=== PATIENT | male | born 1950 | race Caucasian/White ===

== ENCOUNTER 2022-09-06 13:32 | Inpatient (IN) ==
[2022-09-06 15:44] VITALS: BMI 28.3
[2022-09-06] MEDS ORDERED: D5 1/2 NS 1,000 ML 1,000 ML IV ONE (17:24)
[2022-09-06] MEDS ORDERED: ZOSYN VIAL 3.375 GRAMS IV ONE (17:25)
[2022-09-06] MEDS ORDERED: PROTONIX INJ 40 MG VIAL ONE (17:25)
--- NOTE | 2022-09-06 17:25 | EKG ---
Test Reason : surgical clearance Blood Pressure : */* mmHG Vent. Rate : 103 BPM Atrial Rate : 103 BPM P-R Int : 184 ms QRS Dur : 82 ms QT Int : 326 ms P-R-T Axes : 57 -8 83 degrees QTc Int : 427 ms Normal sinus rhythm with premature atrial complexes in a pattern of bigeminy Low voltage QRS Nonspecific ST and T wave abnormality Abnormal ECG No previous ECGs available Confirmed by Dimitry Rosales ([id number]) on 09/06/2022 5:42:47 PM Referred By: Confirmed By: Dimitry Rosales
[2022-09-06] MEDS ORDERED: NS 100 ML IV 100 ML ONE (17:28)
[2022-09-06] MEDS: D5 1/2 NS 1,000 ML 1,000 ML IV SCH ×2 (17:31→21:40)
[2022-09-06] MEDS: MORPHINE SULFATE INJ 4 MG IVP PRN (17:44)
[2022-09-06] MEDS ORDERED: ZOSYN VIAL 3.375 GRAMS 3.375 G in NS 100 ML IV 100 ML IV SCH ×2 (18:00→21:00)
[2022-09-06] MEDS ORDERED: PROTONIX INJ 40 MG VIAL IVP SCH (18:00)
--- NOTE | 2022-09-06 18:01 | RAD ---
EXAM: CHEST X-RAYHISTORY: Abdominal surgical clearance.TECHNIQUE: AP CXR dated September 06, 2022 at 5:26 PM.COMPARISON: None.FINDINGS:The patient is status post sternotomy, presumably for CABG.There is evidence for a shallow inspiratory effort with mild prominence of the bronchopulmonary markings and widening of the cardiac silhouette. Note that mild CHF or volume overload cannot be excluded in this radiographic setting. Clinical correlation is advised.There is no gross focal lung consolidation, pleural effusion, or pneumothorax. The visualized bony structures are within normal limits.IMPRESSION:1. Shallow inspiratory effort with mild prominence of the bronchopulmonary markings and widening of the cardiac silhouette; DDX includes mild CHF or volume overload in the appropriate clinical setting; consider mild bronchitis and interstitial pneumonia in the appropriate clinical setting.2. Recommend clinical correlation and appropriate follow-up x-ray evaluation to ensure complete clearance as clinically warranted.3. Consider follow evaluation with noncontrast chest CT for further characterization as clinically warranted.Electronically signed by: Bryant Loya (September 06, 2022 17:59:54)
[2022-09-06] MEDS ORDERED: NS 1,000 ML IV 1,000 ML ONE (18:24)
[2022-09-06] MEDS ORDERED: POLYMYXIN B SULFATE ONE (18:24)
[2022-09-06] MEDS ORDERED: BARHEMSYS INJ IVP PRN (18:33)
[2022-09-06] MEDS ORDERED: DILAUDID INJ IVP PRN (18:33)
[2022-09-06] MEDS ORDERED: ZOFRAN INJ 4 MG VIAL IVP PRN ×2 (18:33→20:55)
[2022-09-06] MEDS ORDERED: BENADRYL INJ 50 MG VIAL IVP PRN (18:33)
[2022-09-06] MEDS ORDERED: REGLAN INJ 10 MG VIAL IVP PRN (18:33)
[2022-09-06] MEDS ORDERED: NovoLIN R (or HumuLIN R) ONE ×2 (18:40→19:27)
[2022-09-06] MEDS ORDERED: SUPRANE ONE (18:46)
[2022-09-06] MEDS ORDERED: KETAMINE HCL ONE (18:46)
[2022-09-06] MEDS ORDERED: NEO-SYNEPHRINE INJ ONE (18:50)
[2022-09-06] MEDS ORDERED: ZEMURON 100 MG VIAL ONE (18:50)
[2022-09-06] MEDS ORDERED: DIPRIVAN VIAL 0 ML ONE (18:50)
[2022-09-06] MEDS ORDERED: FENTANYL VIAL INJ 250 mcg ONE (18:50)
[2022-09-06] MEDS ORDERED: VERSED ONE (18:55)
[2022-09-06] MEDS ORDERED: BYFAVO INJ IVP ONE (18:57)
[2022-09-06] MEDS ORDERED: OFIRMEV IV 1000 MG VIAL 1,000 MG/100 ML VIAL IV ONE (19:02)
[2022-09-06] MEDS ORDERED: K-RIDER 10 MEQ/NS 100 ML 20 MEQ/200 ML BAG IV ONE (19:31)
[2022-09-06] MEDS ORDERED: BRIDION ONE (20:02)
[2022-09-06] MEDS: PROTONIX INJ 40 MG VIAL IVP SCH (21:50)
[2022-09-06] MEDS: NovoLIN R (or HumuLIN R) SUBCUT PRN (22:23)
[2022-09-07] MEDS: ZOSYN VIAL 3.375 GRAMS 3.375 G in NS 100 ML IV 100 ML IV SCH ×4 (00:26→21:31)
[2022-09-07] MEDS: NovoLIN R (or HumuLIN R) SUBCUT PRN ×5 (00:45→20:29)
[2022-09-07] MEDS: D5 1/2 NS 1,000 ML 1,000 ML IV SCH ×6 (01:05→20:27)
[2022-09-07] MEDS ORDERED: LANTUS SC ONE (01:58)
[2022-09-07] MEDS: LANTUS SC SCH ×2 (02:00→20:28)
[2022-09-07 06:17] LABS: BASOPHILS % (AUTO) 0 % (0.2-1.0); EOSINOPHILS # (AUTO) 0.1 x10^3/uL (0.0-0.2); EOSINOPHILS % (AUTO) 0.6 % (0.9-2.9); HEMOGLOBIN 11.5 g/dL (13.5-18.0); LYMPHOCYTES # (AUTO) 0.5 X10^3/uL (1.3-2.9); LYMPHOCYTES % (AUTO) 2.4 % (21.0-51.0); MEAN CORPUSCULAR HEMOGLOBIN 30.5 pg (27.0-34.0); MEAN CORPUSCULAR HGB CONC 33.8 g/dL (33.0-35.0); MEAN CORPUSCULAR VOLUME 90.1 fL (80.0-100.0); MEAN PLATELET VOLUME 8.2 fL (7.4-11.0); MONOCYTES # (AUTO) 0.9 x10^3/uL (0.3-0.8); MONOCYTES % (AUTO) 4.1 % (0.0-13.0); NEUTROPHILS # (AUTO) 20.9 x10^3/uL (2.2-4.8); NEUTROPHILS % (AUTO) 92.9 % (42.0-75.0); PLATELET COUNT 298 X10^3/uL (150.0-450.0); RED BLOOD COUNT 3.78 X10^6/uL (4.7-6.0); RED CELL DISTRIBUTION WIDTH 13.6 % (11.6-16.5); WHITE BLOOD COUNT 22.4 X10^3/uL (3.6-10.0)
[2022-09-07 06:19] LABS: CALCIUM 8.1 mg/dL (8.5-10.1); CARBON DIOXIDE 24.3 mmol/L (21-32); COR CA(FOR HYPOALB) 8.9 mg/dL (8.5-10.1); CREATININE 1.67 mg/dL (0.70-1.30); POTASSIUM 4.5 mmol/L (3.5-5.1); TOTAL PROTEIN 6.2 g/dL (6.4-8.2)
[2022-09-07 06:47] LABS: BAND NEUTROPHILS % 5 % (0-10); PLATELET MORPHOLOGY COMMENT NORMAL (NORMAL)
--- NOTE | 2022-09-07 07:45 | DR.PROGNOT ---
HOSPITAL PROGRESS NOTE Progress Note for Day of: Progress Note Date: 09/07/22 Chief Complaint Chief Complaint: s/p repair of incarcerated LT inguinal hernia . RT rib Fxs with small effusion . recent diverticulitis . feeling better today . BS 255, BUN 33 , Creat 1.6.. WBC 22.4 tem 99.2 Past Medical Family Social History Allergies: Allergies No Known Allergies Allergy (Verified 09/06/22 17:30) Vital Signs Vital Signs: Temperature 99.2 F Pulse Rate [Left Radial] 92 Pulse Rate 80 Respiratory Rate 14 Blood Pressure [Left Arm] 124/61 Blood Pressure 90/50 O2 Sat by Pulse Oximetry 93 Physical Exam Mood Description: Calm Speech Pattern: Clear and Appropriate Laboratory and Diagnostics Result Diagrams: 09/07/22 04:45 09/07/22 04:45 Labs: Laboratory WBC 22.4 X10^3/uL (3.6-10.0) H 09/07/22 04:45 RBC 3.78 X10^6/uL (4.7-6.0) L 09/07/22 04:45 Hgb 11.5 g/dL (13.5-18.0) L 09/07/22 04:45 Hct 34.0 % (42.0-54.0) L 09/07/22 04:45 MCV 90.1 fL (80.0-100.0) 09/07/22 04:45 MCH 30.5 pg (27.0-34.0) 09/07/22 04:45 MCHC 33.8 g/dL (33.0-35.0) 09/07/22 04:45 RDW 13.6 % (11.6-16.5) 09/07/22 04:45 Plt Count 298 X10^3/uL (150.0-450.0) 09/07/22 04:45 Plt Count Comment Adequate (ADEQUATE) 09/07/22 04:45 MPV 8.2 fL (7.4-11.0) 09/07/22 04:45 Neut % (Auto) 92.9 % (42.0-75.0) H 09/07/22 04:45 Lymph % (Auto) 2.4 % (21.0-51.0) L 09/07/22 04:45 [place] % (Auto) 4.1 % (0.0-13.0) 09/07/22 04:45 Eos % (Auto) 0.6 % (0.9-2.9) L 09/07/22 04:45 Baso % (Auto) 0 % (0.2-1.0) L 09/07/22 04:45 Neut # (Auto) 20.9 x10^3/uL (2.2-4.8) H 09/07/22 04:45 Lymph # (Auto) 0.5 X10^3/uL (1.3-2.9) L 09/07/22 04:45 [place] # (Auto) 0.9 x10^3/uL (0.3-0.8) H 09/07/22 04:45 Eos # (Auto) 0.1 x10^3/uL (0.0-0.2) 09/07/22 04:45 Baso # (Auto) 0.0 X10^3/uL (0.0-0.1) 09/07/22 04:45 Absolute Nucleated RBC 0.0 /100WBC 09/07/22 04:45 Total Counted 100 09/07/22 04:45 Neutrophils % (Manual) 82 % (39-76) H 09/07/22 04:45 Band Neutrophils % 5 % (0-10) 09/07/22 04:45 Lymphocytes % (Manual) 6 % (13-43) L 09/07/22 04:45 Monocytes % (Manual) 7 % (4-9) 09/07/22 04:45 Plt Morphology Comment Normal (NORMAL) 09/07/22 04:45 RBC Morphology Normal (NORMAL) 09/07/22 04:45 Sodium 136 mmol/L (136-145) 09/07/22 04:45 Corrected Sodium 141 mmol/L (136-145) 09/07/22 04:45 Potassium 4.5 mmol/L (3.5-5.1) 09/07/22 04:45 Chloride 103 mmol/L (98-107) 09/07/22 04:45 Carbon Dioxide 24.3 mmol/L (21-32) 09/07/22 04:45 BUN 33 mg/dL (7-18) H 09/07/22 04:45 Creatinine 1.67 mg/dL (0.70-1.30) H 09/07/22 04:45 Est GFR (MDRD) Af Amer 52 (>60) L 09/07/22 04:45 Est GFR (MDRD) Non-Af 43 (>60) L 09/07/22 04:45 Glucose 305 mg/dL (65-99) H 09/07/22 04:45 POC Glucose (mg/dL) 259 mg/dL (65-99) H 09/07/22 05:18 Calcium 8.1 mg/dL (8.5-10.1) L 09/07/22 04:45 Corrected Calcium 8.9 mg/dL (8.5-10.1) 09/07/22 04:45 Total Bilirubin 0.70 mg/dL (0.2-1.0) 09/07/22 04:45 AST 82 Units/L (15-37) H 09/07/22 04:45 ALT 33 Units/L (12-78) 09/07/22 04:45 Alkaline Phosphatase 73 Units/L (46-116) 09/07/22 04:45 Total Protein 6.2 g/dL (6.4-8.2) L 09/07/22 04:45 Albumin 3.0 g/dL (3.4-5.0) L 09/07/22 04:45 Globulin 3.2 g/dL (2.5-4.5) 09/07/22 04:45 Albumin/Globulin Ratio 0.9 Ratio (1.1-2.1) L 09/07/22 04:45 Assessment and Plan 1: incarcerated Lt inguinal hernia with the colon inside . s/p surgery . same PO care , OOB , Full liquid diet . 2: dehydration . on IVF. 3: DM . same medical management . same IV ABT , DVT prophylaxis , incentive spirometer .
[2022-09-07] MEDS: PROTONIX INJ 40 MG VIAL IVP SCH ×2 (09:58→20:34)
[2022-09-07] MEDS: LOVENOX INJ 40 MG SYR SC SCH (09:58)
[2022-09-07] MEDS: ZESTRIL TAB 5 MG PO SCH (09:58)
[2022-09-07] MEDS: MORPHINE SULFATE INJ 4 MG IVP PRN ×2 (11:08→18:53)
--- NOTE | 2022-09-07 14:56 | DR.CONSULT ---
CONSULT Consultation for Day of: Date: 09/07/22 Chief Complaint Chief Complaint: Medical management chronic medical problems Allergies Allergies Allergy/AdvReac Type Severity Reaction Status Date / Time No Known Allergies Allergy Verified 09/06/22 17:30 History of Present Illness History of Present Illness: This is a pleasant 72-year-old white male who came in late yesterday afternoon from [place], [place] for an incarcerated left inguinal hernia. Our general surgeon, Dr. Coreas was consulted and he took him to the OR and repair the incarcerated hernia. I was called approximately 1:45 in the morning as his blood sugar had gone up to greater than 300. I started him back on his Lantus 60 units at at bedtime and when I saw him this morning he reported that he was feeling much better. I do see that he is got an elevated white blood cell count is having some fever still. He is currently receiving IV Zosyn. I see he is also receiving D5 half-normal saline. He does report that he still have some abdominal pain but it is much improved since the operation. He does report that his bowels are moving this morning however it it is diarrhea at this time. He is taking some clear fluids and tolerating that okay now. Past Medical History Past Medical History: Diabetes and Hypertension Past Surgical History Surgical History: Tonsillectomy Family History Family Medical History: Diabetes Mellitus and [place] Social History Does patient currently use any type of tobacco product: No Have you used tobacco products in the last 12 months: No Type of Tobacco Use: None Does any household member use tobacco: No Alcohol Use: None Drug Use: None Medications Home Medications: No Known Allergies Allergy (Verified 09/06/22 17:30) CONTINUE taking the following medications atorvastatin 40 mg tablet 40 mg PO QPM cholesterol 09/07/22 [History] clopidogrel 75 mg tablet 75 mg PO QDAY 09/07/22 [History] insulin glargine 100 unit/mL subcutaneous solution (Lantus U-100 Insulin) 60 unit subcut QPM 09/07/22 [History] insulin regular human 100 unit/mL injection solution (Humulin R Regular U-100 Insulin) 10 unit subcut QDAY 09/07/22 [History] lisinopril 5 mg tablet 5 mg PO QDAY 09/07/22 [History] temazepam 30 mg capsule 30 mg PO QPM 09/07/22 [History] tramadol 50 mg tablet 50 mg PO BID PRN pain 09/07/22 [History] Review of Systems Constitutional: Fever and Weakness Eyes: No Symptoms Reported ENT: No Symptoms Reported Respiratory: No Symptoms Reported Cardiovascular: No Symptoms Reported Gastrointestinal: Diarrhea Genitourinary: No Symptoms Reported Musculoskeletal: No Symptoms Reported Skin: No Symptoms Reported Neurological: No Symptoms Reported Physical Exam Vital Signs: Temperature 100.2 F Pulse Rate [Left Radial] 78 Pulse Rate 80 Respiratory Rate 18 Blood Pressure [Left Arm] 105/55 Blood Pressure 90/50 O2 Sat by Pulse Oximetry 93 Oriented: Normal, Time, Person and Place Eyes: Normal Ear: Normal Nose: Normal Throat: Normal Respiratory: Clear Throughout Cardiovascular: Normal Auscultation: Bowel Sounds: Normal Palpation: Normal Tenderness: Diffuse Skin: Normal Musculoskeletal: Normal Psychiatric: Normal Mood Description: Calm Affect: Normal Speech Pattern: Clear and Appropriate; negative Unclear, Inappropriate or Delayed Plan (1) Insulin dependent type 2 diabetes mellitus: Status: Acute Plan: Continue Lantus 60 units at at bedtime. Sliding scale regular insulin per protocol. Thank you for this consult. (2) Hypertension: Status: Acute Plan: Continue lisinopril 5 mg p.o. daily.
[2022-09-07] MEDS: SNACK - Diabetic Appropriate PO SCH (19:25)
[2022-09-07] MEDS ORDERED: SNACK - Diabetic Appropriate PO SCH (20:00)
[2022-09-07] MEDS: LIPITOR TAB 40 MG PO SCH (20:26)
[2022-09-07] MEDS: RESTORIL CAP 15 MG PO SCH (20:26)
[2022-09-08] MEDS: D5 1/2 NS 1,000 ML 1,000 ML IV SCH ×2 (02:30→04:53)
[2022-09-08] MEDS: ZOSYN VIAL 3.375 GRAMS 3.375 G in NS 100 ML IV 100 ML IV SCH ×3 (05:02→21:20)
[2022-09-08] MEDS: NovoLIN R (or HumuLIN R) SUBCUT PRN ×4 (05:22→21:22)
[2022-09-08 08:13] LABS: BASOPHILS % (AUTO) 0.1 % (0.2-1.0); EOSINOPHILS % (AUTO) 0.1 % (0.9-2.9); HEMATOCRIT 29.6 % (42.0-54.0); HEMOGLOBIN 10.3 g/dL (13.5-18.0); LYMPHOCYTES # (AUTO) 1.6 X10^3/uL (1.3-2.9); LYMPHOCYTES % (AUTO) 10.1 % (21.0-51.0); MEAN CORPUSCULAR HEMOGLOBIN 30.9 pg (27.0-34.0); MEAN CORPUSCULAR HGB CONC 34.8 g/dL (33.0-35.0); MEAN CORPUSCULAR VOLUME 88.9 fL (80.0-100.0); MEAN PLATELET VOLUME 7.8 fL (7.4-11.0); MONOCYTES # (AUTO) 1.2 x10^3/uL (0.3-0.8); MONOCYTES % (AUTO) 7.4 % (0.0-13.0); NEUTROPHILS % (AUTO) 82.3 % (42.0-75.0); PLATELET COUNT 238 X10^3/uL (150.0-450.0); RED BLOOD COUNT 3.32 X10^6/uL (4.7-6.0); RED CELL DISTRIBUTION WIDTH 13.9 % (11.6-16.5); WHITE BLOOD COUNT 15.7 X10^3/uL (3.6-10.0)
[2022-09-08 08:46] LABS: ALANINE AMINOTRANSFERASE 33 Units/L (12-78); ALBUMIN 2.6 g/dL (3.4-5.0); ALKALINE PHOSPHATASE 63 Units/L (46-116); ASPARTATE AMINO TRANSFERASE 67 Units/L (15-37); BLOOD UREA NITROGEN 26 mg/dL (7-18); CALCIUM 7.9 mg/dL (8.5-10.1); CARBON DIOXIDE 26.7 mmol/L (21-32); CHLORIDE 99 mmol/L (98-107); COR NA(FOR HYPERGLY) 135 mmol/L (136-145); CREATININE 1.29 mg/dL (0.70-1.30); GLUCOSE 207 mg/dL (65-99); POTASSIUM 3.8 mmol/L (3.5-5.1); SODIUM 132 mmol/L (136-145); TOTAL PROTEIN 5.8 g/dL (6.4-8.2); eGFR NON BLACK RACES 58 (>60)
[2022-09-08] MEDS ORDERED: NS 1/2 1,000 ML IV 1,000 ML IV ONE (08:47)
[2022-09-08] MEDS ORDERED: NORCO 5/325 MG TAB ONE (09:00)
[2022-09-08] MEDS: NORCO 5/325 MG TAB PO PRN ×2 (09:28→19:50)
[2022-09-08] MEDS: NS 1/2 1,000 ML IV 1,000 ML IV SCH ×2 (09:28→21:20)
[2022-09-08] MEDS: ZESTRIL TAB 5 MG PO SCH (09:29)
[2022-09-08] MEDS: PROTONIX INJ 40 MG VIAL IVP SCH ×2 (09:29→21:20)
[2022-09-08] MEDS: LOVENOX INJ 40 MG SYR SC SCH (09:29)
--- NOTE | 2022-09-08 11:42 | RAD ---
HISTORYPLEURAL EFFUSIONSTUDYCHEST, 1 [id number] lungs are not well inflated. As a result, there are hypoventilatory changes.There are focal areas of abnormal opacity in the lung basis. These could be areas of atelectasis due to the poor degree of inflation. Or they could be pneumonia.Heart size is normal.Bones are unremarkable.Median sternotomy wires are present.IMPRESSION1. Basilar atelectasis or pneumoniaElectronically signed by: Don Trejo (September 08, 2022 11:41:24)
--- NOTE | 2022-09-08 12:01 | PCM.PROG ---
Progress Note Progress Note for Day of Date of Exam: 09/08/22 Subjective Subjective: Patient is sitting up in a chair this morning and reports reports he feels a little bit better. He was still having some diarrhea yesterday but reports that he is not having any bowel movements this morning. I auscultated his abdomen and he has some hypoactive bowel sounds this morning. He is still hurting a fair amount in his abdomen but much improved and he is still hurting in the right ribs that are fracture from his fall. I see that the chest x-ray this morning shows patchy areas in the right lower lobe possible pleural effusion. This is likely from the fall that resulted in fractured ribs. However if he does have underlying pneumonia he is currently covered with IV Zosyn. I will have him do a sputum culture this morning and see if it shows anything. Past Medical Family Social History Allergies: Allergies No Known Allergies Allergy (Verified 09/06/22 17:30) Review of Systems ROS: No change since H&P Vital Signs and I&O's Vital Signs: Temperature 99.2 F Pulse Rate [Left Radial] 79 Pulse Rate 80 Respiratory Rate 22 Blood Pressure [Left Arm] 116/56 Blood Pressure 90/50 O2 Sat by Pulse Oximetry 90 Intake and Output: Intake & Output 09/05/22 09/06/22 09/07/22 09/08/22 11:59 11:59 11:59 11:59 Intake Total 4395 / 4395 2009 Output Total 1930 / 1930 Balance 2465 / 2465 2009 Physical Exam Oriented: Normal, Time, Person and Place Eyes: Normal Ear: Normal Nose: Normal Throat: Normal Respiratory: Right, Diminished and Rales Cardiovascular: Normal Auscultation: Bowel Sounds: Normal Tenderness: Diffuse Skin: Normal Musculoskeletal: Normal Psychiatric: Normal Mood Description: Calm Affect: Normal Speech Pattern: Clear and Appropriate Laboratory and Diagnostics Result Diagrams: 09/08/22 07:57 09/08/22 07:57 Labs: 09/06/22 19:41 Peritoneal Fluid Wound Culture - Preliminary Laboratory WBC 15.7 X10^3/uL (3.6-10.0) H 09/08/22 07:57 RBC 3.32 X10^6/uL (4.7-6.0) L 09/08/22 07:57 Hgb 10.3 g/dL (13.5-18.0) L 09/08/22 07:57 Hct 29.6 % (42.0-54.0) L 09/08/22 07:57 MCV 88.9 fL (80.0-100.0) 09/08/22 07:57 MCH 30.9 pg (27.0-34.0) 09/08/22 07:57 MCHC 34.8 g/dL (33.0-35.0) 09/08/22 07:57 RDW 13.9 % (11.6-16.5) 09/08/22 07:57 Plt Count 238 X10^3/uL (150.0-450.0) 09/08/22 07:57 Plt Count Comment Adequate (ADEQUATE) 09/07/22 04:45 MPV 7.8 fL (7.4-11.0) 09/08/22 07:57 Neut % (Auto) 82.3 % (42.0-75.0) H 09/08/22 07:57 Lymph % (Auto) 10.1 % (21.0-51.0) L 09/08/22 07:57 [place] % (Auto) 7.4 % (0.0-13.0) 09/08/22 07:57 Eos % (Auto) 0.1 % (0.9-2.9) L 09/08/22 07:57 Baso % (Auto) 0.1 % (0.2-1.0) L 09/08/22 07:57 Neut # (Auto) 13.0 x10^3/uL (2.2-4.8) H 09/08/22 07:57 Lymph # (Auto) 1.6 X10^3/uL (1.3-2.9) 09/08/22 07:57 [place] # (Auto) 1.2 x10^3/uL (0.3-0.8) H 09/08/22 07:57 Eos # (Auto) 0.0 x10^3/uL (0.0-0.2) 09/08/22 07:57 Baso # (Auto) 0.0 X10^3/uL (0.0-0.1) 09/08/22 07:57 Absolute Nucleated RBC 0.0 /100WBC 09/08/22 07:57 Total Counted 100 09/07/22 04:45 Neutrophils % (Manual) 82 % (39-76) H 09/07/22 04:45 Band Neutrophils % 5 % (0-10) 09/07/22 04:45 Lymphocytes % (Manual) 6 % (13-43) L 09/07/22 04:45 Monocytes % (Manual) 7 % (4-9) 09/07/22 04:45 Plt Morphology Comment Normal (NORMAL) 09/07/22 04:45 RBC Morphology Normal (NORMAL) 09/07/22 04:45 Sodium 132 mmol/L (136-145) L 09/08/22 07:57 Corrected Sodium 135 mmol/L (136-145) L 09/08/22 07:57 Potassium 3.8 mmol/L (3.5-5.1) 09/08/22 07:57 Chloride 99 mmol/L (98-107) 09/08/22 07:57 Carbon Dioxide 26.7 mmol/L (21-32) 09/08/22 07:57 BUN 26 mg/dL (7-18) H 09/08/22 07:57 Creatinine 1.29 mg/dL (0.70-1.30) 09/08/22 07:57 Est GFR (MDRD) Af Amer > 60 (>60) 09/08/22 07:57 Est GFR (MDRD) Non-Af 58 (>60) L 09/08/22 07:57 Glucose 207 mg/dL (65-99) H 09/08/22 07:57 POC Glucose (mg/dL) 222 mg/dL (65-99) H 09/08/22 11:38 Calcium 7.9 mg/dL (8.5-10.1) L 09/08/22 07:57 Corrected Calcium 9.0 mg/dL (8.5-10.1) 09/08/22 07:57 Total Bilirubin 0.70 mg/dL (0.2-1.0) 09/08/22 07:57 AST 67 Units/L (15-37) H 09/08/22 07:57 ALT 33 Units/L (12-78) 09/08/22 07:57 Alkaline Phosphatase 63 Units/L (46-116) 09/08/22 07:57 Total Protein 5.8 g/dL (6.4-8.2) L 09/08/22 07:57 Albumin 2.6 g/dL (3.4-5.0) L 09/08/22 07:57 Globulin 3.2 g/dL (2.5-4.5) 05 07:57 Albumin/Globulin Ratio 0.8 Ratio (1.1-2.1) L 09/08/22 07:57 Radiology Reviewed: Yes Plan (1) Insulin dependent type 2 diabetes mellitus: Status: Acute Plan: Discontinue patient's D5 half-normal saline and change to one half normal saline at 125 mL an hour. (2) Hypertension: Status: Acute Narrative Support Text: Blood pressure stable this morning. No change in treatment of hypertension. Plan: Continue treatment. (3) Fracture of rib of right side: Status: Acute Plan: Pain control. (4) Leukocytosis: Status: Acute Narrative Support Text: Patient's chest x-ray showing possible developing pneumonia and right lower lobe this morning. I suspect is probably more likely to recent fall with rib fractures causing an effusion. Plan: Continue IV Zosyn. I will check a sputum culture today.
--- NOTE | 2022-09-08 12:24 | DR.PROGNOT ---
HOSPITAL PROGRESS NOTE Progress Note for Day of: Progress Note Date: 09/08/22 Chief Complaint Chief Complaint: s/p repair of incarcerated LT inguinal hernia . RT rib Fxs with small effusion . recent diverticulitis . feeling better today . having small liquidy bowel movement. White count came down to 15.7 with 92 segs. BUN down to 26 and creatinine 1.6.. Blood sugar 207 Chest x-ray showed some infiltrate of the right lower lobe. Past Medical Family Social History Allergies: Allergies No Known Allergies Allergy (Verified 09/06/22 17:30) Review Of Systems ROS: No change since H&P Vital Signs Vital Signs: Temperature 99.2 F Pulse Rate [Left Radial] 79 Pulse Rate 80 Respiratory Rate 22 Blood Pressure [Left Arm] 116/56 Blood Pressure 90/50 O2 Sat by Pulse Oximetry 90 Physical Exam Oriented: Normal, Time, Person and Place Eyes: Normal Ear: Normal Nose: Normal Throat: Normal Respiratory: Right, Diminished and Rales Cardiovascular: Normal GI:Auscultation: Normal GI:Palpation: Normal GI: Tenderness: Diffuse and LLQ (Moderate diffuse tenderness, bowel sounds are present but hypoactive.) Skin: Normal Musculoskeletal: Normal Psychiatric: Normal Mood Description: Calm Affect: Normal Speech Pattern: Clear and Appropriate Laboratory and Diagnostics Result Diagrams: 09/08/22 07:57 09/08/22 07:57 Labs: 09/06/22 19:41 Peritoneal Fluid Wound Culture - Preliminary Laboratory WBC 15.7 X10^3/uL (3.6-10.0) H 09/08/22 07:57 RBC 3.32 X10^6/uL (4.7-6.0) L 09/08/22 07:57 Hgb 10.3 g/dL (13.5-18.0) L 09/08/22 07:57 Hct 29.6 % (42.0-54.0) L 09/08/22 07:57 MCV 88.9 fL (80.0-100.0) 09/08/22 07:57 MCH 30.9 pg (27.0-34.0) 09/08/22 07:57 MCHC 34.8 g/dL (33.0-35.0) 09/08/22 07:57 RDW 13.9 % (11.6-16.5) 09/08/22 07:57 Plt Count 238 X10^3/uL (150.0-450.0) 09/08/22 07:57 Plt Count Comment Adequate (ADEQUATE) 09/07/22 04:45 MPV 7.8 fL (7.4-11.0) 09/08/22 07:57 Neut % (Auto) 82.3 % (42.0-75.0) H 09/08/22 07:57 Lymph % (Auto) 10.1 % (21.0-51.0) L 09/08/22 07:57 [place] % (Auto) 7.4 % (0.0-13.0) 09/08/22 07:57 Eos % (Auto) 0.1 % (0.9-2.9) L 09/08/22 07:57 Baso % (Auto) 0.1 % (0.2-1.0) L 09/08/22 07:57 Neut # (Auto) 13.0 x10^3/uL (2.2-4.8) H 09/08/22 07:57 Lymph # (Auto) 1.6 X10^3/uL (1.3-2.9) 09/08/22 07:57 [place] # (Auto) 1.2 x10^3/uL (0.3-0.8) H 09/08/22 07:57 Eos # (Auto) 0.0 x10^3/uL (0.0-0.2) 09/08/22 07:57 Baso # (Auto) 0.0 X10^3/uL (0.0-0.1) 09/08/22 07:57 Absolute Nucleated RBC 0.0 /100WBC 09/08/22 07:57 Total Counted 100 09/07/22 04:45 Neutrophils % (Manual) 82 % (39-76) H 09/07/22 04:45 Band Neutrophils % 5 % (0-10) 09/07/22 04:45 Lymphocytes % (Manual) 6 % (13-43) L 09/07/22 04:45 Monocytes % (Manual) 7 % (4-9) 09/07/22 04:45 Plt Morphology Comment Normal (NORMAL) 09/07/22 04:45 RBC Morphology Normal (NORMAL) 09/07/22 04:45 Sodium 132 mmol/L (136-145) L 09/08/22 07:57 Corrected Sodium 135 mmol/L (136-145) L 09/08/22 07:57 Potassium 3.8 mmol/L (3.5-5.1) 09/08/22 07:57 Chloride 99 mmol/L (98-107) 09/08/22 07:57 Carbon Dioxide 26.7 mmol/L (21-32) 09/08/22 07:57 BUN 26 mg/dL (7-18) H 09/08/22 07:57 Creatinine 1.29 mg/dL (0.70-1.30) 09/08/22 07:57 Est GFR (MDRD) Af Amer > 60 (>60) 09/08/22 07:57 Est GFR (MDRD) Non-Af 58 (>60) L 09/08/22 07:57 Glucose 207 mg/dL (65-99) H 09/08/22 07:57 POC Glucose (mg/dL) 222 mg/dL (65-99) H 09/08/22 11:38 Calcium 7.9 mg/dL (8.5-10.1) L 09/08/22 07:57 Corrected Calcium 9.0 mg/dL (8.5-10.1) 09/08/22 07:57 Total Bilirubin 0.70 mg/dL (0.2-1.0) 09/08/22 07:57 AST 67 Units/L (15-37) H 09/08/22 07:57 ALT 33 Units/L (12-78) 09/08/22 07:57 Alkaline Phosphatase 63 Units/L (46-116) 09/08/22 07:57 Total Protein 5.8 g/dL (6.4-8.2) L 09/08/22 07:57 Albumin 2.6 g/dL (3.4-5.0) L 09/08/22 07:57 Globulin 3.2 g/dL (2.5-4.5) 09/08/22 07:57 Albumin/Globulin Ratio 0.8 Ratio (1.1-2.1) L 09/08/22 07:57 Assessment and Plan 1: incarcerated Lt inguinal hernia with the colon inside . s/p surgery . same PO care , OOB , Full liquid diet . 2: dehydration . mostly corrected . on IVF. 3: DM . same medical management . same IV ABT , DVT prophylaxis , incentive spirometer . 4: rib Fx with RT pleural effusion .2nd rib Fx . same ABT and pain control .
[2022-09-08] MEDS: LIPITOR TAB 40 MG PO SCH (21:20)
[2022-09-08] MEDS: RESTORIL CAP 15 MG PO SCH (21:20)
[2022-09-08] MEDS: SNACK - Diabetic Appropriate PO SCH (21:20)
[2022-09-08] MEDS: LANTUS SC SCH (21:21)
[2022-09-09] MEDS ORDERED: NS 1/2 1,000 ML IV 1,000 ML IV ONE (02:04)
[2022-09-09] MEDS: NS 1/2 1,000 ML IV 1,000 ML IV SCH (02:15)
[2022-09-09 05:37] LABS: BASOPHILS % (AUTO) 0.2 % (0.2-1.0); EOSINOPHILS # (AUTO) 0.1 x10^3/uL (0.0-0.2); EOSINOPHILS % (AUTO) 1.1 % (0.9-2.9); HEMATOCRIT 28.4 % (42.0-54.0); HEMOGLOBIN 9.9 g/dL (13.5-18.0); LYMPHOCYTES # (AUTO) 1.9 X10^3/uL (1.3-2.9); LYMPHOCYTES % (AUTO) 17.5 % (21.0-51.0); MEAN CORPUSCULAR HEMOGLOBIN 31.2 pg (27.0-34.0); MEAN CORPUSCULAR VOLUME 89.1 fL (80.0-100.0); MEAN PLATELET VOLUME 8.3 fL (7.4-11.0); MONOCYTES # (AUTO) 0.9 x10^3/uL (0.3-0.8); MONOCYTES % (AUTO) 7.8 % (0.0-13.0); NEUTROPHILS % (AUTO) 73.4 % (42.0-75.0); PLATELET COUNT 212 X10^3/uL (150.0-450.0); RED BLOOD COUNT 3.19 X10^6/uL (4.7-6.0); RED CELL DISTRIBUTION WIDTH 13.5 % (11.6-16.5); WHITE BLOOD COUNT 10.9 X10^3/uL (3.6-10.0)
[2022-09-09] MEDS: ZOSYN VIAL 3.375 GRAMS 3.375 G in NS 100 ML IV 100 ML IV SCH (05:48)
[2022-09-09 05:51] LABS: ALANINE AMINOTRANSFERASE 46 Units/L (12-78); ALBUMIN 2.3 g/dL (3.4-5.0); ALKALINE PHOSPHATASE 64 Units/L (46-116); ASPARTATE AMINO TRANSFERASE 63 Units/L (15-37); BLOOD UREA NITROGEN 21 mg/dL (7-18); CALCIUM 7.6 mg/dL (8.5-10.1); CARBON DIOXIDE 26.4 mmol/L (21-32); CHLORIDE 101 mmol/L (98-107); GLUCOSE 92 mg/dL (65-99); POTASSIUM 3.5 mmol/L (3.5-5.1); SODIUM 133 mmol/L (136-145); TOTAL PROTEIN 5.4 g/dL (6.4-8.2); eGFR NON BLACK RACES > 60 (>60)
--- NOTE | 2022-09-09 07:36 | RAD ---
HISTORYRT LOWER LOBE OPACITIESSTUDYCHEST, 1 [id number]/2023.TECHNIQUEPA or AP view of the chestFINDINGSStatus post median sternotomy and CABG. The cardiac silhouette is stably enlarged. Mediastinal contours appear stable. Low lung volumes. Similar bibasilar patchy opacities. No definite pleural effusion or pneumothorax.IMPRESSIONNo significant change compared to prior radiograph.Electronically signed by: Min Bull (September 09, 2022 07:35:18)
[2022-09-09] MEDS: ZESTRIL TAB 5 MG PO SCH (08:46)
[2022-09-09] MEDS: PROTONIX INJ 40 MG VIAL IVP SCH (08:46)
[2022-09-09] MEDS: LOVENOX INJ 40 MG SYR SC SCH (08:46)
[2022-09-09 09:22] VITALS: BP 102/55
--- NOTE | 2022-09-09 10:49 | PCM.PROG ---
Progress Note Progress Note for Day of Date of Exam: 09/09/22 Subjective Subjective: Patient is sitting up on side of bed this morning. He reports he had a bowel movement this morning however it was small. He is concerned about some abdominal distention he has I told him it would improve as he emptied his bowels over the coming days. He has been released by general surgeon, Dr. Coreas to go home today. His white count has nearly normalized. Chest x-ray is basically unchanged from yesterday. However they do not see any right-sided pleural effusion and still seeing some patchy infiltrates. Dr. Coreas has released him on p.o. Cipro and Flagyl Cipro should cover him if he does have some underlying pneumonia. He is cleared to be discharged home from [facility]. Past Medical Family Social History Allergies: Allergies No Known Allergies Allergy (Verified 09/06/22 17:30) Review of Systems ROS: No change since H&P Vital Signs and I&O's Vital Signs: Temperature 97.6 F Pulse Rate [Left Radial] 82 Pulse Rate 80 Respiratory Rate 18 Blood Pressure [Left Arm] 102/55 Blood Pressure 90/50 O2 Sat by Pulse Oximetry 94 Intake and Output: Intake & Output 09/06/22 09/07/22 09/08/22 09/09/22 11:59 11:59 11:59 11:59 Intake Total 4395 / 4395 2009 2595 / 2595 Output Total 1930 / 1930 Balance 2465 / 2465 2009 2595 / 2595 Physical Exam Oriented: Normal, Time, Person and Place Eyes: Normal Ear: Normal Nose: Normal Throat: Normal Respiratory: Normal Cardiovascular: Normal Auscultation: Bowel Sounds: Normal Tenderness: Diffuse and LLQ (Moderate diffuse tenderness, bowel sounds are present but hypoactive.) Skin: Normal Musculoskeletal: Normal Psychiatric: Normal Mood Description: Calm Affect: Normal Speech Pattern: Clear and Appropriate Laboratory and Diagnostics Result Diagrams: 09/09/22 04:57 09/09/22 04:57 Labs: 09/08/22 20:05 Sputum - Expectorated Sputum Sputum Culture - Preliminary 09/08/22 20:05 Sputum - Expectorated Sputum - Final 09/06/22 19:41 Peritoneal Fluid Wound Culture - Final Laboratory WBC 10.9 X10^3/uL (3.6-10.0) H 09/09/22 04:57 RBC 3.19 X10^6/uL (4.7-6.0) L 09/09/22 04:57 Hgb 9.9 g/dL (13.5-18.0) L 09/09/22 04:57 Hct 28.4 % (42.0-54.0) L 09/09/22 04:57 MCV 89.1 fL (80.0-100.0) 09/09/22 04:57 MCH 31.2 pg (27.0-34.0) 09/09/22 04:57 MCHC 35.0 g/dL (33.0-35.0) 09/09/22 04:57 RDW 13.5 % (11.6-16.5) 09/09/22 04:57 Plt Count 212 X10^3/uL (150.0-450.0) 09/09/22 04:57 Plt Count Comment Adequate (ADEQUATE) 09/07/22 04:45 MPV 8.3 fL (7.4-11.0) 09/09/22 04:57 Neut % (Auto) 73.4 % (42.0-75.0) 09/09/22 04:57 Lymph % (Auto) 17.5 % (21.0-51.0) L 09/09/22 04:57 [place] % (Auto) 7.8 % (0.0-13.0) 09/09/22 04:57 Eos % (Auto) 1.1 % (0.9-2.9) 09/09/22 04:57 Baso % (Auto) 0.2 % (0.2-1.0) 09/09/22 04:57 Neut # (Auto) 8.0 x10^3/uL (2.2-4.8) H 09/09/22 04:57 Lymph # (Auto) 1.9 X10^3/uL (1.3-2.9) 09/09/22 04:57 [place] # (Auto) 0.9 x10^3/uL (0.3-0.8) H 09/09/22 04:57 Eos # (Auto) 0.1 x10^3/uL (0.0-0.2) 09/09/22 04:57 Baso # (Auto) 0.0 X10^3/uL (0.0-0.1) 09/09/22 04:57 Absolute Nucleated RBC 0.0 /100WBC 09/09/22 04:57 Total Counted 100 09/07/22 04:45 Neutrophils % (Manual) 82 % (39-76) H 09/07/22 04:45 Band Neutrophils % 5 % (0-10) 09/07/22 04:45 Lymphocytes % (Manual) 6 % (13-43) L 09/07/22 04:45 Monocytes % (Manual) 7 % (4-9) 09/07/22 04:45 Plt Morphology Comment Normal (NORMAL) 09/07/22 04:45 RBC Morphology Normal (NORMAL) 09/07/22 04:45 Sodium 133 mmol/L (136-145) L 09/09/22 04:57 Corrected Sodium TNP 09/09/22 04:57 Potassium 3.5 mmol/L (3.5-5.1) 09/09/22 04:57 Chloride 101 mmol/L (98-107) 09/09/22 04:57 Carbon Dioxide 26.4 mmol/L (21-32) 09/09/22 04:57 BUN 21 mg/dL (7-18) H 09/09/22 04:57 Creatinine 1.10 mg/dL (0.70-1.30) 09/09/22 04:57 Est GFR (MDRD) Af Amer > 60 (>60) 09/09/22 04:57 Est GFR (MDRD) Non-Af > 60 (>60) 09/09/22 04:57 Glucose 92 mg/dL (65-99) 09/09/22 04:57 POC Glucose (mg/dL) 84 mg/dL (65-99) 09/09/22 05:44 Calcium 7.6 mg/dL (8.5-10.1) L 09/09/22 04:57 Corrected Calcium 9.0 mg/dL (8.5-10.1) 09/09/22 04:57 Total Bilirubin 0.50 mg/dL (0.2-1.0) 09/09/22 04:57 AST 63 Units/L (15-37) H 09/09/22 04:57 ALT 46 Units/L (12-78) 09/09/22 04:57 Alkaline Phosphatase 64 Units/L (46-116) 09/09/22 04:57 B-Natriuretic Peptide 499 pg/mL (0-79) H 09/09/22 04:57 Total Protein 5.4 g/dL (6.4-8.2) L 09/09/22 04:57 Albumin 2.3 g/dL (3.4-5.0) L 09/09/22 04:57 Globulin 3.1 g/dL (2.5-4.5) 09/09/22 04:57 Albumin/Globulin Ratio 0.7 Ratio (1.1-2.1) L 09/09/22 04:57 Radiology Reviewed: Yes Plan (1) Insulin dependent type 2 diabetes mellitus: Status: Acute Plan: Discontinue patient's D5 half-normal saline and change to one half normal saline at 125 mL an hour. (2) Hypertension: Status: Acute Plan: Continue treatment. (3) Fracture of rib of right side: Status: Acute Plan: Pain control. (4) Leukocytosis: Status: Resolved Narrative Support Text: Gram stain of sputum showed moderate gram-positive cocci and some white cells. Plan: Patient stable to be discharged home today for medical standpoint. He has been cleared for discharge by general surgery as well.
== END 2022-09-09 12:45 | disposition home or self-care (01) | DRG 351 ==
LOC: MED/SURG → OBSVTOIN 14:34
PROVIDERS: ADMIT Surgery; ATTEND Surgery